=== PATIENT | female | born 1995 | race Caucasian/White ===

== ENCOUNTER 2024-04-02 15:01 | Emergency (ER) | payer BC, OTHER ==
[2024-04-02 15:09] VITALS: BP 127/85; PULSE 85; RESP 16; TEMP 98.6; BMI 28.3
== END 2024-04-02 17:49 | disposition home or self-care (01) ==
LOC: JER 15:01 → JERFT 15:01
DX: L73.1 Pseudofolliculitis barbae (principal)
CPT/HCPCS: 99282-25